=== PATIENT | female | born 1995 | race Caucasian/White ===

== ENCOUNTER → 2019-04-28 14:45 | Outpatient (BNVA) | payer MEDICAID, SELFPAY | PROVIDERS: Family Provider Family Medicine; PCP Family Medicine; Visit Provider Counselor Professional | DX: F43.9 Reaction to severe stress, unspecified (principal); Z63.0 Problems in relationship with spouse or partner; F33.1 Major depressive disorder, recurrent, moderate | CPT/HCPCS: 90834 ==

== ENCOUNTER → 2019-05-11 14:46 | Outpatient (BNVA) | payer MEDICAID, SELFPAY | PROVIDERS: Family Provider Family Medicine; PCP Family Medicine; Visit Provider Psychiatry & Neurology Psychiatry | DX: F33.2 Major depressive disorder, recurrent severe without psychotic features (principal); F41.1 Generalized anxiety disorder; F43.12 Post-traumatic stress disorder, chronic; Z63.0 Problems in relationship with spouse or partner | CPT/HCPCS: 99204 ==

== ENCOUNTER → 2019-05-19 07:53 | Outpatient (BNVA) | payer MEDICAID, SELFPAY | PROVIDERS: Family Provider Family Medicine; PCP Family Medicine; Visit Provider Counselor Professional | DX: F43.9 Reaction to severe stress, unspecified (principal); Z63.0 Problems in relationship with spouse or partner; F33.1 Major depressive disorder, recurrent, moderate | CPT/HCPCS: 90834 ==

== ENCOUNTER → 2019-05-31 12:39 | Outpatient (BNVA) | payer MEDICAID, SELFPAY | PROVIDERS: Family Provider Family Medicine; PCP Family Medicine; Visit Provider Counselor Professional | DX: F43.12 Post-traumatic stress disorder, chronic (principal); F41.1 Generalized anxiety disorder; F33.2 Major depressive disorder, recurrent severe without psychotic features | CPT/HCPCS: 90834 ==

== ENCOUNTER → 2019-06-09 12:17 | Outpatient (BNVA) | payer MEDICAID, SELFPAY | PROVIDERS: Family Provider Family Medicine; PCP Family Medicine; Visit Provider Psychiatry & Neurology Psychiatry | DX: F43.12 Post-traumatic stress disorder, chronic (principal); F41.1 Generalized anxiety disorder; F33.2 Major depressive disorder, recurrent severe without psychotic features | CPT/HCPCS: 99213 ==

== ENCOUNTER → 2019-06-14 13:00 | Outpatient (BNVA) | payer MEDICAID, SELFPAY | PROVIDERS: Family Provider Family Medicine; PCP Family Medicine; Visit Provider Counselor Professional | DX: F43.12 Post-traumatic stress disorder, chronic (principal); F41.1 Generalized anxiety disorder; F33.2 Major depressive disorder, recurrent severe without psychotic features | CPT/HCPCS: 90832 ==

== ENCOUNTER → 2019-09-13 07:48 | Outpatient (BNVA) | payer MEDICAID, SELFPAY | PROVIDERS: Family Provider Family Medicine; PCP Family Medicine; Visit Provider Psychiatry & Neurology Psychiatry | DX: F43.12 Post-traumatic stress disorder, chronic (principal); F41.1 Generalized anxiety disorder; F33.2 Major depressive disorder, recurrent severe without psychotic features | CPT/HCPCS: 99213 ==

== ENCOUNTER → 2019-12-28 08:30 | Outpatient (BNVA) | payer MEDICAID, SELFPAY | PROVIDERS: Family Provider Family Medicine; PCP Family Medicine; Visit Provider Psychiatry & Neurology Psychiatry | DX: F43.12 Post-traumatic stress disorder, chronic (principal); F41.1 Generalized anxiety disorder; F33.2 Major depressive disorder, recurrent severe without psychotic features | CPT/HCPCS: 99213 ==

== ENCOUNTER 2020-02-27 10:49 | Outpatient (CLI) | payer MEDICAID, SELFPAY ==
[2020-02-27 11:54] LABS: C Reactive Protein 2.4 mg/L (0.0-4.9)
== END 2020-02-27 10:50 | disposition home or self-care (01) ==
PROVIDERS: PCP Nurse Practitioner Family; Visit Provider Surgery
DX: R10.9 Unspecified abdominal pain (principal)
CPT/HCPCS: 84443; 86140

== ENCOUNTER → 2020-04-26 17:49 | Outpatient (BNVA) | payer BC, MEDICAID, SELFPAY | PROVIDERS: PCP Nurse Practitioner Family; Visit Provider Surgery | DX: Z01.812 Encounter for preprocedural laboratory examination (principal) | CPT/HCPCS: 87635 ==

== ENCOUNTER → 2020-09-05 07:34 | Outpatient (BNVA) | payer BC, SELFPAY | PROVIDERS: PCP Nurse Practitioner Family; Visit Provider Psychiatry & Neurology Psychiatry | DX: F43.12 Post-traumatic stress disorder, chronic (principal); F41.1 Generalized anxiety disorder; F33.2 Major depressive disorder, recurrent severe without psychotic features | CPT/HCPCS: 99214 ==

== ENCOUNTER → 2020-12-04 15:45 | Outpatient (BNVA) | payer BC, SELFPAY | PROVIDERS: PCP Nurse Practitioner Family; Visit Provider Counselor Mental Health | DX: F43.12 Post-traumatic stress disorder, chronic (principal); F41.1 Generalized anxiety disorder; F33.2 Major depressive disorder, recurrent severe without psychotic features | CPT/HCPCS: 90834 ==

== ENCOUNTER → 2020-12-11 08:53 | Outpatient (BNVA) | payer BC, SELFPAY | PROVIDERS: PCP Nurse Practitioner Family; Visit Provider Counselor Mental Health | DX: F43.12 Post-traumatic stress disorder, chronic (principal); F41.1 Generalized anxiety disorder; F33.2 Major depressive disorder, recurrent severe without psychotic features | CPT/HCPCS: 90834 ==

== ENCOUNTER → 2021-01-11 12:55 | Outpatient (BNVA) | payer BC, SELFPAY | PROVIDERS: PCP Nurse Practitioner Family; Visit Provider Counselor Mental Health | DX: F43.12 Post-traumatic stress disorder, chronic (principal); F41.1 Generalized anxiety disorder; F33.2 Major depressive disorder, recurrent severe without psychotic features | CPT/HCPCS: 90834 ==

== ENCOUNTER → 2021-02-18 10:45 | Outpatient (BNVA) | payer BC, SELFPAY | PROVIDERS: PCP Nurse Practitioner Family; Visit Provider Counselor Mental Health | DX: F43.12 Post-traumatic stress disorder, chronic (principal); F33.2 Major depressive disorder, recurrent severe without psychotic features; F41.1 Generalized anxiety disorder | CPT/HCPCS: 90832 ==

== ENCOUNTER → 2021-03-25 12:52 | Outpatient (BNVA) | payer BC, SELFPAY | PROVIDERS: PCP Nurse Practitioner Family; Visit Provider Counselor Mental Health | DX: F43.12 Post-traumatic stress disorder, chronic (principal); F41.1 Generalized anxiety disorder; F33.2 Major depressive disorder, recurrent severe without psychotic features | CPT/HCPCS: 90832 ==

== ENCOUNTER → 2021-04-15 10:54 | Outpatient (BNVA) | payer BC, SELFPAY | PROVIDERS: PCP Nurse Practitioner Family; Visit Provider Counselor Mental Health | DX: F43.12 Post-traumatic stress disorder, chronic (principal); F41.1 Generalized anxiety disorder; F33.2 Major depressive disorder, recurrent severe without psychotic features | CPT/HCPCS: 90834 ==

== ENCOUNTER → 2021-04-23 11:16 | Outpatient (BNVA) | payer BC, SELFPAY | PROVIDERS: PCP Nurse Practitioner Family; Visit Provider Psychiatry & Neurology Psychiatry | DX: F43.12 Post-traumatic stress disorder, chronic (principal); F41.1 Generalized anxiety disorder; F33.2 Major depressive disorder, recurrent severe without psychotic features | CPT/HCPCS: 99213 ==

== ENCOUNTER → 2021-04-29 12:47 | Outpatient (BNVA) | payer MEDICAID, SELFPAY | PROVIDERS: PCP Nurse Practitioner Family; Visit Provider Counselor Mental Health | DX: F43.12 Post-traumatic stress disorder, chronic (principal); F41.1 Generalized anxiety disorder; F33.2 Major depressive disorder, recurrent severe without psychotic features | CPT/HCPCS: 90834 ==

== ENCOUNTER → 2021-05-13 12:50 | Outpatient (BNVA) | payer MEDICAID, SELFPAY | PROVIDERS: PCP Nurse Practitioner Family; Visit Provider Counselor Mental Health | DX: F43.12 Post-traumatic stress disorder, chronic (principal); F41.1 Generalized anxiety disorder; F33.2 Major depressive disorder, recurrent severe without psychotic features | CPT/HCPCS: 90832 ==

== ENCOUNTER → 2021-06-10 10:45 | Outpatient (BNVA) | payer BC, SELFPAY | PROVIDERS: PCP Nurse Practitioner Family; Visit Provider Counselor Mental Health | DX: F43.12 Post-traumatic stress disorder, chronic (principal); F33.2 Major depressive disorder, recurrent severe without psychotic features; F41.1 Generalized anxiety disorder | CPT/HCPCS: 90832 ==

== ENCOUNTER 2021-07-05 15:04 | Emergency (ER) | payer MEDICAID, SELFPAY ==
[2021-07-05 15:16] VITALS: BP 121/76; PULSE 77; RESP 18; TEMP 36.4; O2SAT 100; BMI 30.4
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
[2021-07-05] MEDS: ketorolac 60 mg/2 mL INJ IM (15:58)
[2021-07-05] MEDS: diphenhydrAMINE 50 mg/mL SDV 1mL IVP (16:12)
[2021-07-05] MEDS: sodium chloride 0.9% 1,000 ML 999 ML IV (16:14)
--- NOTE | 2021-07-05 16:33 | PC.NURSE ---
PATIENT WAS GIVEN TORADOL IM 5 MINUTES LATER HAD AN ALLERGIC REACTION BLOOD PRESSURE WAS 80/48 RR WERE 22 WITH RETRACTIONS NOTED. PATIENT WAS SWEATING AND COOL TO TOUCH SKIN COLOR WAS WHITE AND PALE
[2021-07-05 16:34] VITALS: BP 110/76; PULSE 66; RESP 18; O2SAT 99
[2021-07-05 16:49] VITALS: BP 110/76; PULSE 66; RESP 16; O2SAT 99
== END 2021-07-05 16:51 | disposition home or self-care (01) ==
PROVIDERS: Emergency Provider Physician Assistant; PCP Nurse Practitioner Family
DX: M53.3 Sacrococcygeal disorders, not elsewhere classified (principal); F17.210 Nicotine dependence, cigarettes, uncomplicated
CPT/HCPCS: 96361; 96372; 96374; 96375; 99284; J1200; J1885; J2930; J7030

== ENCOUNTER → 2021-07-23 15:49 | Outpatient (BNVA) | payer BC, SELFPAY | PROVIDERS: PCP Nurse Practitioner Family; Visit Provider Counselor Mental Health | DX: F33.2 Major depressive disorder, recurrent severe without psychotic features (principal); F41.1 Generalized anxiety disorder; F43.12 Post-traumatic stress disorder, chronic | CPT/HCPCS: 90834 ==

== ENCOUNTER 2021-07-25 22:42 | Emergency (ER) | payer MEDICAID, SELFPAY ==
[2021-07-25 22:59] VITALS: BP 108/90; PULSE 72; RESP 17; TEMP 36.8; O2SAT 99; BMI 31.1
--- NOTE | 2021-07-25 23:02 | W.ED.TRAUMA ---
HPI - Trauma General: Chief Complaint: Wound/Laceration Stated Complaint: laceration on right hand Time Seen by Provider: 07/25/21 22:59 History of Present Illness: 26-year-old female comes in today with complaints of injury to the little finger on the right hand. On exam patient has a flap laceration to the dorsal medial aspect of the little finger. No damage is noted to the nail. No tendon injury is noted. Patient cut the finger when she was at her storage shed on the door. Patient's tetanus is up-to-date as it was done in 2018. Associated symptoms: Denies chest pain or fever(s) Review of Systems General: Reports: 10 or more systems reviewed and unremarkable except in HPI and below Const: Denies: fever(s) Card: Denies: chest pain Resp: Denies: dyspnea Musc: Reports: extremity pain Skin/Breast: Reports: other (Finger laceration) [facility] ED PFSH: Medical History Psychiatric care Family History Other Diabetes Hypertension Denies family history of CAD (coronary artery disease) Anesthesia complication Bleeding disorder Cancer Social History Smoking and tobacco status: current every day smoker cigarettes Packs smoked per day: 0.5 Years cigarettes smoked: 12 Quit status (tobacco): has tried quititng Number of times tried to quit tobacco: 3 Second hand smoke exposure: No Alcohol intake: current Alcohol intake frequency: holidays/special occasions only Household members: family Marital status: Single Current occupational status: employed History of recent travel: No Female Reproductive History: Date of last menstrual period: 06/30/21 Physical Exam Const: COMMON NORMALS: alert HENMT: COMMON NORMALS: atraumatic HEAD & SCALP: atraumatic Neck/C-Spine: COMMON NORMALS: full ROM Chest: COMMONS NORMALS: normal inspection of the chest Resp: COMMON NORMALS: normal respiratory effort Cardio: COMMON NORMALS: regular rate RATE: regular rate Extremity: RIGHT UPPER EXTREMITY: Yes hand & digits (1 cm laceration to the dorsal little finger) Right hand and digits: Yes inspection, Yes palpation and Yes ROM exam Neuro: SENSORIUM/ORIENTATION: Yes alert Skin: TRAUMA: laceration (Dorsal little finger) flap Procedures Laceration Laceration 1: Site: hand Side (If applicable): right Size (cm): 1 Description: flap Depth: simple, single layer Local Anesthetic: lidocaine 1% Amount of anesthesia used (mL): 1 Pre-repair: wound explored and irrigated extensively Skin layer closed with: nylon Size (cm): 4-0 Number of sutures: 3 Technique: simple, interrupted Course Vital Signs: Vital signs: Vital Signs Temperature 98.3 F 07/25/21 22:59 Pulse Rate 72 07/25/21 22:59 Respiratory Rate 17 07/25/21 22:59 Blood Pressure 108/90 07/25/21 22:59 Pulse Oximetry 99 07/25/21 22:59 MDM - Trauma Medical Decision Making 26-year-old female comes in today with injury to the little finger on the right hand. There is a 1 cm flap laceration. Normal tendon function, no foreign body, immunizations up-to-date. Differential diagnosis includes laceration, tendon injury, foreign body. As noted in the exam no foreign body or tendon injury was noted. Wound was closed with 3 sutures to hold the flap in place. Light pressure dressing was applied. Patient tolerated well. Patient will be covered with cephalexin for prophylaxis antibiotic therapy. Discharge Plan Discharge Patient Disposition: Home Clinical Impression: Finger laceration Qualifiers: Encounter type: initial encounter Finger: little finger Damage to nail status: without damage Foreign body presence: without foreign body Laterality: right Qualified Code(s): S61.216A - Laceration without foreign body of right little finger without damage to nail, initial encounter Condition: Stable Prescriptions: New cephalexin 500 mg capsule 500 mg PO BID 7 Days Qty: 14 0RF No Action buspirone 30 mg tablet 30 mg PO BID Qty: 60 2RF bupropion HCl [Wellbutrin XL] 300 mg tablet extended release 24 hr 300 mg PO QAM Qty: 30 2RF trazodone 50 mg tablet 50 mg PO .HS Qty: 30 2RF ibuprofen 800 mg tablet 800 mg PO Q8H PRN (Reason: pain) Qty: 20 0RF cyclobenzaprine 7.5 mg tablet 7.5 mg PO BID PRN (Reason: muscle spasm) Qty: 20 0RF Discharge Orders: Discharge ED (Routine); Ordered 07/25/21 Ordered By: Luis Fernando Baez Referrals: Cora Contreras FNP [Primary Care Provider] - Discharge Diet: Usual diet Discharge Activity: Increase activity as tolerated Patient Instructions: Laceration (ED) Activity Restrictions/Additional Instructions: Keep wound clean and dry. For the next 48 hours it is very important to keep the wound as dry as possible. Protect the wound with a cover dressing. Sutures need to come out in 7 days. Follow-up with primary care or return to the ER as needed. Monitor for signs of infection such as fever, increasing redness and pain. Use acetaminophen and ibuprofen for pain. Return to ER for new concerns. Stand Alone Forms: Work/School Release Coding Level of Care Code ED Student Nurse for Kathia Lind
[2021-07-26] MEDS: cephALEXin 500 mg Capsule PO (00:06)
== END 2021-07-26 00:07 | disposition home or self-care (01) ==
PROVIDERS: Emergency Provider Nurse Practitioner Family; PCP Nurse Practitioner Family
DX: S61.216A Laceration without foreign body of right little finger without damage to nail, initial encounter (principal); X58.XXXA Exposure to other specified factors, initial encounter; F17.210 Nicotine dependence, cigarettes, uncomplicated
CPT/HCPCS: 12001; 99283

== ENCOUNTER → 2021-08-08 14:00 | Outpatient (BNVA) | payer BC, SELFPAY | PROVIDERS: PCP Nurse Practitioner Family; Visit Provider Counselor Mental Health | DX: F43.12 Post-traumatic stress disorder, chronic (principal); F41.1 Generalized anxiety disorder; F33.2 Major depressive disorder, recurrent severe without psychotic features | CPT/HCPCS: 90853 ==

== ENCOUNTER → 2021-08-22 14:00 | Outpatient (BNVA) | payer BC, SELFPAY | PROVIDERS: PCP Nurse Practitioner Family; Visit Provider Counselor Mental Health | DX: F41.1 Generalized anxiety disorder (principal) | CPT/HCPCS: 90853 ==

== ENCOUNTER → 2021-08-29 14:00 | Outpatient (BNVA) | payer BC, SELFPAY | PROVIDERS: PCP Nurse Practitioner Family; Visit Provider Counselor Mental Health | DX: F43.12 Post-traumatic stress disorder, chronic (principal); F33.2 Major depressive disorder, recurrent severe without psychotic features; F41.1 Generalized anxiety disorder | CPT/HCPCS: 90853 ==

== ENCOUNTER → 2021-08-30 15:45 | Outpatient (BNVA) | payer BC, SELFPAY | PROVIDERS: PCP Nurse Practitioner Family; Visit Provider Psychiatry & Neurology Psychiatry | DX: F43.12 Post-traumatic stress disorder, chronic (principal); F41.1 Generalized anxiety disorder; F33.2 Major depressive disorder, recurrent severe without psychotic features | CPT/HCPCS: 99213 ==

== ENCOUNTER → 2021-09-03 15:50 | Outpatient (BNVA) | payer BC, SELFPAY | PROVIDERS: PCP Nurse Practitioner Family; Visit Provider Counselor Mental Health | DX: F43.12 Post-traumatic stress disorder, chronic (principal); F41.1 Generalized anxiety disorder; F33.2 Major depressive disorder, recurrent severe without psychotic features | CPT/HCPCS: 90834 ==

== ENCOUNTER → 2023-04-02 10:09 | Outpatient (BNVA) | payer OTHER, MEDICAID, SELFPAY | PROVIDERS: PCP Nurse Practitioner Family; Visit Provider Nurse Practitioner Family | DX: R09.81 Nasal congestion (principal); J06.9 Acute upper respiratory infection, unspecified | CPT/HCPCS: 87400 ==

== ENCOUNTER → 2023-04-22 12:43 | Outpatient (BNVA) | payer OTHER, MEDICAID, SELFPAY | PROVIDERS: PCP Nurse Practitioner Family; Visit Provider Nurse Practitioner | DX: R39.9 Unspecified symptoms and signs involving the genitourinary system (principal); N30.00 Acute cystitis without hematuria | CPT/HCPCS: 81000; 87086 ==

== ENCOUNTER → 2023-08-11 11:53 | Outpatient (BNVA) | payer SELFPAY | PROVIDERS: PCP Nurse Practitioner Family; Visit Provider Nurse Practitioner | DX: R39.9 Unspecified symptoms and signs involving the genitourinary system | CPT/HCPCS: 81000 ==

== ENCOUNTER 2023-10-13 22:43 | Emergency (ER) | payer OTHER, SELFPAY ==
[2023-10-13 22:51] VITALS: BP 115/77; PULSE 70; RESP 16; TEMP 36.7; O2SAT 99
--- NOTE | 2023-10-13 23:10 | XRR_ITS ---
PROCEDURE INFORMATION: Exam: XR Chest Exam date and time: 10/13/2023 11:23 PM Age: 28 years old Clinical indication: Pain; Chest pressure; Additional info: Right lateral cp TECHNIQUE: Imaging protocol: Radiologic exam of the chest. Views: 1 view. COMPARISON: No relevant prior studies available. FINDINGS: Lungs: Unremarkable. No consolidation. Pleural spaces: Unremarkable. No pleural effusion. No pneumothorax. Heart/Mediastinum: Unremarkable. No cardiomegaly. Bones/joints: Unremarkable. XR/XR chest 1V portable [id number] IMPRESSION: No acute findings.
[2023-10-13] MEDS: methocarbamol 750 mg Tablet PO (23:31)
[2023-10-13] MEDS: bacitracin ointment Pkt 1 EACH TOPICAL (23:33)
[2023-10-13] MEDS: dexamethasone 10 mg/mL INJ IM (23:34)
--- NOTE | 2023-10-13 23:37 | W.ED.SKABFB ---
HPI - Skin/Abscess/Foreign Bdy General: Chief complaint: Skin/Abscess/Foreign Body Stated complaint: rash on right upper arm Time Seen by Provider: 10/13/23 22:49 Source: patient Mode of arrival: ambulatory Limitations: no limitations History of Present Illness: Patient is a 28-year-old female who presents the emergency department complaining of redness to her right axillary region that she noticed today. 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 Pain is noted to be reproducible to palpation and she denies any shortness of breath, palpitations, syncope, or other concerning signs or symptoms. She states with her redness to her arm she does recall a sharp stinging sensation, believes she might have been stung or bit by an insect. She is not having any fevers or other signs of systemic illness. Has not taken anything for her symptoms at this time. No concerning past medical history to report. MD complaint: other (Right axillary region redness) Onset (ago): day(s) Pain Consistency: constant Associated symptoms: Deny chills, fever(s), nausea or vomiting Review of Systems General: Reports: 10 or more systems reviewed and unremarkable except in HPI and below Const: Denies: fever(s), chills or fatigue Eyes: Denies: change in vision ENMT: Denies: throat pain, ear or mastoid pain or nasal discharge Card: Reports: other (Right anterior chest wall pain); Denies: palpitations, swelling of feet/ankles or lightheadedness Resp: Denies: dyspnea, productive cough or wheezing GI: Denies: abdominal pain, nausea, vomiting, diarrhea or constipation : Denies: flank pain, difficulty voiding, dysuria or urinary frequency Musc: Denies: neck pain, back pain or joint pain Skin/Breast: Reports: erythema (Right axillary region); Denies: pruritus, skin pain or skin tenderness Neuro: Denies: headache(s), numbness in extremities or weakness in extremities PFSH ED PFSH: Medical History Psychiatric care Family History Other Diabetes Hypertension Denies family history of CAD (coronary artery disease) Anesthesia complication Bleeding disorder Cancer Social History Smoking and tobacco/nicotine status: current every day tobacco/nicotine user cigarettes Packs smoked per day: 0.5 Years cigarettes smoked: 12 Quit status (tobacco/nicotine): has tried quititng Number of times tried to quit tobacco: 3 Second hand smoke exposure: No Alcohol intake: never Substance/Drug Use: former Date of last use: Marijuana - 07/2021 Household members: family Marital status: Single Current occupational status: employed Physical Exam Const: COMMON NORMALS: no acute distress, patient oriented x3 and no limitations GENERAL APPEARANCE: cooperative, comfortable and well developed ORIENTATION/CONSCIOUSNESS: Yes awake, Yes oriented to person, Yes oriented to place and Yes oriented to time HENMT: COMMON NORMALS: normocephalic, atraumatic and hearing grossly normal bilaterally HEAD & SCALP: normocephalic and atraumatic Eye: COMMON NORMALS: Equal, round and reactive pupils present, EOMs intact bilaterally and conjunctivae normal CONJUNCTIVA: Yes conjunctivae normal PUPIL: Yes Equal, round and reactive pupils present Neck/C-Spine: COMMON NORMALS: full ROM, supple and no JVD Chest: OTHER: There is reproducible tenderness to palpation of the right anterior chest wall, appears normal to inspection with no step-off deformity or bruising Resp: COMMON NORMALS: normal respiratory effort, No retractions, No use of accessory muscles and clear to auscultation bilaterally AUSCULTATION: clear to auscultation bilaterally Cardio: COMMON NORMALS: no JVD, regular rate, regular rhythm, No clicks present (Cardio), No murmurs present (Cardio) and No rub (Cardio) RATE: regular rate RHYTHM: regular rhythm Extremity: COMMON NORMALS: normal to inspection, full ROM and capillary refill normal Neuro: COMMON NORMALS: patient oriented x3, moves all extremities, no focal motor deficits and no sensory deficits noted SENSORIUM/ORIENTATION: Yes oriented to person, Yes oriented to place and Yes oriented to time Psych: COMMON NORMALS: mental status grossly normal and Normal thought process present THOUGHT PROCESS: Normal thought process present Skin: NARRATIVE SKIN EXAM: There does appear to be insect bite/sting lesion to patient's right upper arm to the inferior aspect, not quite to the axillary region. There is surrounding area of erythema, however no palpable fluctuance or significant induration Course Vital Signs: Vital signs: Vital Signs Temperature 98.1 F 10/14/23 00:50 Pulse Rate 70 10/14/23 00:50 Respiratory Rate 16 10/14/23 00:50 Blood Pressure 115/77 10/14/23 00:50 Pulse Oximetry 99 10/14/23 00:50 MDM - Skin/Abscess/Foreign Bdy Medicial Decision Making Patient presented for acute onset of redness under her right axilla as well as some right anterior chest wall pain. 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 She denies any pertinent cardiac history and no other concerning symptoms. States that with the redness she felt a sting prior to, likely bug bite. On exam it did appear to have mild surrounding erythema and presence of bite lesion. No significant fluctuance to indicate abscess and we will treat this with bacitracin. She is given a shot of Decadron as well as a dose of Robaxin for her musculoskeletal chest pain, EKG reviewed with Dr. Lal shows sinus rhythm rate of [address] segment changes. CBC and CMP unremarkable. Chest x-ray normal. I do not believe her chest pain to be of cardiac regionality I do think that this is related to her lifting at work. She is instructed to take Tylenol and ibuprofen for this and will return with any recurrence of chest pain or other concerning symptoms. She is also instructed to follow-up with primary care. Return precautions given. Lab Data 10/14/23 00:07 10/14/23 00:07 Radiology Impressions Chest X-Ray 10/13/23 23:10 IMPRESSION: No acute findings. Laboratory Results WBC 7.89 10^3/uL (3.29-11.43) 10/14/23 00:07 RBC 4.60 10^6/uL (3.85-5.65) 10/14/23 00:07 Hgb 13.80 g/dL (11.27-16.99) 10/14/23 00:07 Hct 40.7 % (36-47) 10/14/23 00:07 MCV 88.5 fl (85-98) 10/14/23 00:07 MCH 30.0 pg (27-33) 10/14/23 00:07 MCHC 33.9 g/dL (30-55) 10/14/23 00:07 RDW 12.1 % (12.1-15.1) 10/14/23 00:07 Plt Count 393 10^3/cmm (157-399) 10/14/23 00:07 MPV 9.7 fL (7.4-10.4) 10/14/23 00:07 Neut % (Auto) 45.3 % 10/14/23 00:07 Lymph % (Auto) 46.3 % 10/14/23 00:07 [place] % (Auto) 6.1 % 10/14/23 00:07 Eos % (Auto) 1.8 % 10/14/23 00:07 Baso % (Auto) 0.4 % 10/14/23 00:07 Neut # (Auto) 3.58 10^3/uL (1.8-7.7) 10/14/23 00:07 Lymph # (Auto) 3.7 10^3/uL (0.8-4.8) 10/14/23 00:07 [place] # (Auto) 0.5 10^3/uL (0.2-0.9) 10/14/23 00:07 Eos # (Auto) 0.1 10^3/uL (0.0-0.8) 10/14/23 00:07 Baso # (Auto) 0.0 10^3/uL (0.0-0.1) 10/14/23 00:07 Nucleated RBC % (auto) 0 % 10/14/23 00:07 Nucleated RBCs # 0.0 /100WBC 10/14/23 00:07 All radiology interpretation(s) finalized by discharge Discharge Plan Discharge Patient Disposition: Home Clinical Impression: Musculoskeletal chest pain Insect bite Qualifiers: Encounter type: initial encounter Site of insect bite: upper arm Laterality: right Qualified Code(s): S40.861A - Insect bite (nonvenomous) of right upper arm, initial encounter Condition: Stable Prescriptions: New mupirocin 2 % ointment 1 applic topical DAILY Qty: 15 0RF No Action bupropion HCl [Wellbutrin XL] 300 mg tablet extended release 24 hr 300 mg PO QAM Qty: 90 1RF buspirone 30 mg tablet 30 mg PO BID Qty: 180 1RF fluoxetine [Prozac] 20 mg capsule 20 mg PO DAILY Qty: 90 1RF trazodone 50 mg tablet 100 mg PO .HS PRN (Reason: insomnia) Qty: 60 2RF nitrofurantoin monohyd/m-cryst [Macrobid] 100 mg capsule 100 mg PO BID 7 Days Qty: 14 0RF Rx Instructions: must administer with a meal/food Discharge Orders: Discharge ED (Routine); Ordered 10/14/23 Ordered By: Bulmaro Villeda Referrals: Cora Contreras, PILLOW AGENT [Primary Care Provider] - Discharge Diet: Usual diet Discharge Activity: Increase activity as tolerated Patient Instructions: Chest Pain (ED) Activity Restrictions/Additional Instructions: Apply bacitracin as prescribed. Take Tylenol and ibuprofen as prescribed. Avoid reinjury. Gentle range of motion exercises as tolerated. Follow-up with your primary care provider. Return with any new or worsening symptoms. Coding Level of Care Code ED Land[employer] System Operator for Kathia Lind
[2023-10-14 00:41] LABS: Basophils % 0.4 %; Eosinophils # 0.1 10^3/uL (0.0-0.8); Eosinophils % 1.8 %; Hematocrit 40.7 % (36-47); Lymphocytes # 3.7 10^3/uL (0.8-4.8); Lymphocytes % 46.3 %; Mean Corpuscular HGB Conc 33.9 g/dL (30-55); Mean Corpuscular Volume 88.5 fl (85-98); Mean Platelet Volume 9.7 fL (7.4-10.4); Monocytes # 0.5 10^3/uL (0.2-0.9); Monocytes % 6.1 %; Neutrophils # 3.58 10^3/uL (1.8-7.7); Neutrophils % 45.3 %; Nucleated Red Blood Cells % 0 %; Platelet Count 393 10^3/cmm (157-399); Red Cell Distribution Width 12.1 % (12.1-15.1); White Blood Count 7.89 10^3/uL (3.29-11.43)
[2023-10-14 00:50] VITALS: BP 115/77; PULSE 70; RESP 16; TEMP 36.7; O2SAT 99
[2023-10-14 00:59] LABS: Alanine Aminotransferase 23 U/L (0-33); Albumin Level 4.3 g/dL (3.5-5.2); Alkaline Phosphatase 82 U/L (35-105); Anion Gap 15.5 (5-19); Aspartate Amino Transferase 25 U/L (0-32); Blood Urea Nitrogen 5 mg/dL (6-20); Carbon Dioxide 25 mmol/L (22-29); Chloride 103 mmol/L (98-107); Creatinine Clr Calc Pharmacy 147.9181; Globulin 3.2 g/dL (1.3-4.6); Glomerular Filtration Rate 118.2 mL/min (90-130); Glucose 98 mg/dL (65-115); Osmolality Calculated 287 mOsm/kg (285-295); Potassium 3.5 mmol/L (3.5-5.1); Sodium 140 mmol/L (136-145); Total Bilirubin 0.6 mg/dL (0.15-1.2); Total Protein 7.5 g/dL (6.6-8.7)
== END 2023-10-14 01:02 | disposition home or self-care (01) ==
PROVIDERS: Emergency Provider Physician Assistant; PCP Nurse Practitioner Family
DX: R07.89 Other chest pain (principal); S40.861A Insect bite (nonvenomous) of right upper arm, initial encounter; W57.XXXA Bitten or stung by nonvenomous insect and other nonvenomous arthropods, initial encounter; F17.210 Nicotine dependence, cigarettes, uncomplicated
CPT/HCPCS: 36415; 71045; 80053; 85025; 96372; 99284; J1100

== ENCOUNTER 2023-11-14 18:25 | Emergency (ER) | payer OTHER, SELFPAY ==
[2023-11-14 18:35] VITALS: BP 118/79; PULSE 91; RESP 16; TEMP 36.8; O2SAT 97
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
[2023-11-14] MEDS: orphenadrine 30 mg/mL Inj 2 mL 60 MG IM (21:02)
[2023-11-14] MEDS: dexamethasone 10 mg/mL INJ IM (21:02)
--- NOTE | 2023-11-14 21:28 | PC.NURSE ---
left thumb splinted with an upside down large frog splint then wrapped with zenobia wrap so that splint could be removed according to provider instructions.
[2023-11-14 21:37] VITALS: BP 121/76; PULSE 89; RESP 16; TEMP 36.8; O2SAT 98
== END 2023-11-14 21:29 | disposition home or self-care (01) ==
PROVIDERS: Emergency Provider Physician Assistant; PCP Nurse Practitioner Family
DX: S60.012A Contusion of left thumb without damage to nail, initial encounter (principal); S90.121A Contusion of right lesser toe(s) without damage to nail, initial encounter; S16.1XXA Strain of muscle, fascia and tendon at neck level, initial encounter; L30.9 Dermatitis, unspecified; V53.5XXA Driver of pick-up truck or van injured in collision with car, pick-up truck or van in traffic accident, initial encounter
CPT/HCPCS: 73130; 73660; 96372; 99284; J1100; J2360

== ENCOUNTER 2023-11-18 11:45 | Emergency (ER) | payer OTHER, SELFPAY ==
[2023-11-18 11:49] VITALS: BP 122/86; PULSE 71; RESP 18; TEMP 36.7; O2SAT 100; BMI 35.9
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
[2023-11-18 13:36] VITALS: BP 111/84; PULSE 66; RESP 14; O2SAT 100
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
[2023-11-18 13:45] VITALS: BP 104/71; PULSE 64; RESP 14; O2SAT 99
== END 2023-11-18 13:52 | disposition home or self-care (01) ==
PROVIDERS: Emergency Provider Physician Assistant; PCP Nurse Practitioner Family
DX: S39.012A Strain of muscle, fascia and tendon of lower back, initial encounter (principal); V89.2XXA Person injured in unspecified motor-vehicle accident, traffic, initial encounter
CPT/HCPCS: 72100; 99283

== ENCOUNTER 2024-01-28 08:31 | Emergency (ER) | payer OTHER, SELFPAY ==
[2024-01-28 08:41] VITALS: BP 121/48; PULSE 83; RESP 18; TEMP 36.6; O2SAT 100; BMI 36.0
--- NOTE | 2024-01-28 09:07 | W.ED.SKABFB ---
HPI - Skin/Abscess/Foreign Bdy General: Chief complaint: Skin/Abscess/Foreign Body Stated complaint: rash Time Seen by Provider: 01/28/24 08:43 History of Present Illness: 28-year-old female who presents to the emergency room with a rash that she has had for nearly a year. 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 No recent fever sweats or chills had a psoriatic like rash with plaques that are scaling on the extensor surface of the elbows most prominently on the left and also on her left low back and flank. No vesicles. No fever sweats or chills Related Data Home Medications Medication Instructions Recorded Confirmed trazodone 50 mg tablet 50 mg PO QPM 01/28/24 01/28/24 Previous Rx's Medication Instructions Recorded bupropion HCl 300 mg 24 hr tablet, 300 mg PO QAM #90 tabs 11/17/23 extended release (Wellbutrin XL) buspirone 30 mg tablet 30 mg PO BID #180 tabs 11/17/23 fluoxetine 20 mg capsule (Prozac) 20 mg PO DAILY #90 caps 11/17/23 cetirizine 10 mg tablet 10 mg PO BID #60 tabs 01/28/24 triamcinolone acetonide 0.5 % 1 applic topical TID #15 grams 01/28/24 topical cream Allergies Allergy/AdvReac Type Severity Reaction Status Date / Time ketorolac [From Toradol] Allergy Intermediate ADR/ALGY-Hy Verified 12/02/23 14:35 potension Review of Systems Skin/Breast: Reports: rash, pruritus, erythema and lesions [facility] ED PFSH: Medical History Psychiatric care Family History Other Diabetes Hypertension Denies family history of CAD (coronary artery disease) Anesthesia complication Bleeding disorder Cancer Social History Smoking and tobacco/nicotine status: current every day tobacco/nicotine user cigarettes Packs smoked per day: 0.5 Years cigarettes smoked: 12 Quit status (tobacco/nicotine): has tried quititng Number of times tried to quit tobacco: 3 Second hand smoke exposure: No Alcohol intake: never Substance/Drug Use: former Date of last use: Marijuana - 07/2021 Household members: family Marital status: Single Current occupational status: employed Physical Exam Skin: OTHER: Scaling plaque-like lesions mildly reddened at the bases are on the extensor surface of the elbows and also on the left lower side of her back extending around to the flank no vesicles no sign of acute infection. Course Vital Signs: Vital signs: Vital Signs Temperature 98 F 01/28/24 08:41 Pulse Rate 63 01/28/24 09:29 Respiratory Rate 18 01/28/24 08:41 Blood Pressure 108/56 01/28/24 09:29 Pulse Oximetry 98 01/28/24 09:29 Oxygen Delivery Me thod Room Air 01/28/24 09:28 MDM - Skin/Abscess/Foreign Bdy Medicial Decision Making Exam eczematous like lesions possibly mild psoriatic lesions I do not really have enough plaque buildup necessarily get him to that level at this point however history of these being persistent recurrent is suspicious his and their location. Will have her use topical triamcinolone she can also use cetirizine for itching I recommend that she follow-up with her primary care doctor to get a referral to the dermatology clinic for more definitive long-term care Medical Records I reviewed the patient's medical records. Lab Data I reviewed the patient's lab results. No radiology studies performed this visit Discharge Plan Discharge Patient Disposition: Home Clinical Impression: Eczema Condition: Stable Prescriptions: New triamcinolone acetonide 0.5 % cream 1 applic topical TID Qty: 15 0RF cetirizine 10 mg tablet 10 mg PO BID Qty: 60 0RF No Action bupropion HCl [Wellbutrin XL] 300 mg tablet extended release 24 hr 300 mg PO QAM Qty: 90 1RF buspirone 30 mg tablet 30 mg PO BID Qty: 180 1RF fluoxetine [Prozac] 20 mg capsule 20 mg PO DAILY Qty: 90 1RF trazodone 50 mg tablet 50 mg PO QPM Discharge Orders: Discharge ED (Routine); Ordered 01/28/24 Ordered By: Chip Givens Referrals: Efrain Orosco NP [Primary Care Provider] - Discharge Diet: Usual diet Discharge Activity: Resume usual activity Patient Instructions: Opioid Safety, Pain Management Activity Restrictions/Additional Instructions: Thank you for choosing [facility] for your healthcare needs today. It is very important that you follow up as instructed or that you return to the Emergency Department should you have concerns or if your condition changes or worsens in any way. You were seen today with an eczematous like rash. This rash does require further evaluation. Medications given here will help with symptoms but you should follow-up with your primary care doctor to get a referral to the dermatology clinic for more definitive diagnosis and long-term management. 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
[2024-01-28 09:28] VITALS: BP 108/56; PULSE 63; O2SAT 98
[2024-01-28 09:29] VITALS: BP 108/56; PULSE 63; O2SAT 98
== END 2024-01-28 09:29 | disposition home or self-care (01) ==
PROVIDERS: Emergency Provider Family Medicine; PCP Nurse Practitioner Family
DX: L30.9 Dermatitis, unspecified (principal); F17.210 Nicotine dependence, cigarettes, uncomplicated
CPT/HCPCS: 99283

== ENCOUNTER → 2024-03-01 12:39 | Outpatient (BNVA) | payer OTHER, SELFPAY | DX: J02.9 Acute pharyngitis, unspecified (principal) | CPT/HCPCS: 87880 ==

== ENCOUNTER → 2024-03-29 14:57 | Outpatient (BNVA) | payer OTHER, SELFPAY | DX: Z12.4 Encounter for screening for malignant neoplasm of cervix (principal) | CPT/HCPCS: 87624 ==

== ENCOUNTER → 2024-09-13 11:18 | Outpatient (BNVA) | payer MEDICAID, SELFPAY | PROVIDERS: Visit Provider Nurse Practitioner Family | DX: L23.9 Allergic contact dermatitis, unspecified cause (principal); D18.01 Hemangioma of skin and subcutaneous tissue | CPT/HCPCS: 99213 ==

== ENCOUNTER 2024-12-07 07:58 | Emergency (ER) | payer MEDICAID, SELFPAY ==
[2024-12-07 08:24] VITALS: BP 119/79; PULSE 76; RESP 18; TEMP 37; O2SAT 100; BMI 35.5
--- NOTE | 2024-12-07 08:25 | W.ED.GENADLT ---
HPI - General Adult General: Chief complaint: Skin/Abscess/Foreign Body Stated complaint: itching and buring sensation, rash on face Time Seen by Provider: 12/07/24 07:59 History of Present Illness: 29-year-old female with itching and burning sensation to her face. She has had problems with it before. She has seen dermatology for it. She had a biopsy done previously was a contact dermatitis they put her on clobetasol for lesions on the extremities and trunk but not for the face or groin. Now she has some lesions around the face particular on the eyes. No difficulty breathing. Associated symptoms: Reports rash Related Data Home Medications ?Medication ?Instructions ?Recorded ?Confirmed trazodone 50 mg tablet 50 mg PO QPM 01/28/24 10/14/24 Previous Rx's ?Medication ?Instructions ?Recorded bupropion HCl 300 mg 24 hr tablet, 300 mg PO QAM #90 tabs 11/17/23 extended release (Wellbutrin XL) buspirone 30 mg tablet 30 mg PO BID #180 tabs 11/17/23 fluoxetine 20 mg capsule (Prozac) 20 mg PO DAILY #90 caps 11/17/23 cetirizine 10 mg tablet 10 mg PO BID #60 tabs 01/28/24 triamcinolone acetonide 0.5 % 1 applic topical TID #15 grams 01/28/24 topical cream metronidazole 500 mg tablet 500 mg PO BID 7 days #14 tabs 03/31/24 amoxicillin 875 mg-potassium 1 tab PO BID 7 days #14 tabs 10/14/24 clavulanate 125 mg tablet cetirizine 10 mg tablet 10 mg PO BID #30 tabs 12/07/24 mometasone 0.1 % topical cream 1 applic topical DAILY #15 grams 12/07/24 Allergies Allergy/AdvReac Type Severity Reaction Status Date / Time ketorolac (From Toradol) Allergy Intermediate ADR/ALGY-Hy Verified 10/14/24 13:03 potension Review of Systems Skin/Breast: Reports: rash and pruritus PFSH ED PFSH: Medical History Cervical cancer screening Encounter to establish care Family History Other Diabetes Hypertension Denies family history of CAD (coronary artery disease) Anesthesia complication Bleeding disorder Cancer Social History Smoking and tobacco/nicotine status: never used tobacco/nicotine Quit status (tobacco/nicotine): has tried quititng Number of times tried to quit tobacco: 3 Second hand smoke exposure: No Alcohol intake: never Substance/Drug Use: former Date of last use: Marijuana - 07/2021 Household members: family Marital status: Single Current occupational status: employed Physical Exam Skin: OTHER: Mild eczematous lesions on the upper eyelids and in a malar distribution. Does not appear to be atypical rash seen with SLE. Course Vital Signs: Vital signs: Vital Signs Temperature 98.6 F 12/07/24 08:24 Pulse Rate 76 12/07/24 09:32 Respiratory Rate 18 12/07/24 08:24 Blood Pressure 120/99 12/07/24 09:32 Pulse Oximetry 99 12/07/24 09:32 Oxygen Delivery Me thod Room Air 12/07/24 08:24 [facility] - General Adult Medical Decision Making Discharge patient home started on Elocon apply daily sparingly to the affected areas and refer her to dermatology continue the clobetasol on the other lesions. Medical Records I reviewed the patient's medical records. No radiology studies performed this visit Discharge Plan Discharge Patient Disposition: Home Clinical Impression: Contact dermatitis Condition: Stable Prescriptions: New mometasone 0.1 % cream 1 applic topical DAILY Qty: 15 0RF Rx Instructions: Apply sparingly to affected areas on the face once daily cetirizine 10 mg tablet 10 mg PO BID Qty: 30 0RF No Action bupropion HCl [Wellbutrin XL] 300 mg tablet extended release 24 hr 300 mg PO QAM Qty: 90 1RF buspirone 30 mg tablet 30 mg PO BID Qty: 180 1RF fluoxetine [Prozac] 20 mg capsule 20 mg PO DAILY Qty: 90 1RF amoxicillin-pot clavulanate 875-125 mg tablet 1 tab PO BID 7 Days Qty: 14 0RF metronidazole 500 mg tablet 500 mg PO BID 7 Days Qty: 14 0RF triamcinolone acetonide 0.5 % cream 1 applic topical TID Qty: 15 0RF cetirizine 10 mg tablet 10 mg PO BID Qty: 60 0RF trazodone 50 mg tablet 50 mg PO QPM Discharge Orders: Discharge ED (Routine); Ordered 12/07/24 Ordered By: Chip Givens Referrals: Patti Denny NP [Primary Care Provider, Family Practice] Discharge Diet: Usual diet Discharge Activity: Resume usual activity Patient Instructions: Opioid Safety, Pain Management, Patient Portal & Buck Instructions Activity Restrictions/Additional Instructions: Thank you for choosing [facility] for your healthcare needs today. It is very important that you follow up as instructed or that you return to the Emergency Department should you have concerns or if your condition changes or worsens in any way. Emergency department visits are focused on emergent conditions, in some cases you may require further evaluation on an outpatient basis. You were seen in the emergency room with a rash on the face. Continue the clobetasol as prescribed by dermatology for areas not on the face or the groin. For the areas on the face you can use the Elocon apply sparingly once daily. Also recommend you start cetirizine 10 mg 1 tablet twice a day follow-up with dermatology as soon as you are able (Please note that included in your discharge packet is information concerning opioid safety and pain management. This information is given to all patients were discharged from the ER regardless of their discharge diagnosis or the medicines they usually take or are prescribed.) Stand Alone Forms: Work/School Release Print Language: Icelandic Coding Level of Care Code ED Rfid Specialist for Kathia Lind
[2024-12-07 09:32] VITALS: BP 120/99; PULSE 76; O2SAT 99
== END 2024-12-07 09:33 | disposition home or self-care (01) ==
PROVIDERS: Emergency Provider Family Medicine
DX: L25.9 Unspecified contact dermatitis, unspecified cause (principal)
CPT/HCPCS: 99283